=== PATIENT | male | born 1955 | race Caucasian/White ===

== ENCOUNTER 2018-01-08 04:07 | Inpatient (IN) | payer MEDICARE, OTHER ==
[2018-01-08] VITALS (21 sets, daily range): BP systolic 100–113; BP diastolic 8–78
[~2018-01-08] VITALS: Ht 170.2 cm; Wt 71.4 kg
[2018-01-08] MEDS ORDERED: famotidine/PF 10 mg/ml inj IV ONE (04:15)
[2018-01-08] MEDS ORDERED: methylPREDNISolone sod succ 125mg/2ml vial IV ONE (04:15)
[2018-01-08] MEDS ORDERED: normal saline 1000ML IV soln IVB STA (04:16)
[2018-01-08] MEDS: epiNEPHrine 1 mg/ml inj SQ ONE ×2 (04:20→04:48)
[2018-01-08] MEDS: diphenhydrAMINE 50 mg/ml inj IV ONE ×2 (04:20→04:48)
[2018-01-08] MEDS ORDERED: C1 ESTERASE INHIBITOR IV ONE (04:25)
[2018-01-08] MEDS ORDERED: tranexamic acid inj. 1,000 MG in normal saline 100ml IV soln 90 ML IV ONE (04:25)
[2018-01-08] MEDS ORDERED: tranexamic acid 100mg/ml inj. ONE (04:27)
[2018-01-08] MEDS ORDERED: racepinephrine 11.25mg/0.5ml nebule IH STA (04:59)
[2018-01-08] MEDS ORDERED: racepinephrine 11.25mg/0.5ml nebule ONE (05:00)
[2018-01-08] MEDS ORDERED: LIDOcaine 1% (10mg/ml) 2ml vial SQ ONE (05:10)
[2018-01-08] MEDS ORDERED: etomidate 2mg/ml inj. IV ONE (05:10)
[2018-01-08] MEDS ORDERED: succinylcholine 20mg/ml inj IV ONE (05:10)
[2018-01-08] MEDS ORDERED: MIDAZolam 1mg/ml 10ml vial ONE (05:23)
[2018-01-08] MEDS ORDERED: propofol inj 20 ML IV ONE (05:24)
[2018-01-08] MEDS ORDERED: fentaNYL/PF 50MCG/1 ML 2ML syringe ONE (05:24)
[2018-01-08] MEDS ORDERED: sevoflurane 250ml liquid IH ONE (05:24)
[2018-01-08] MEDS ORDERED: dextrose 5%-1/2 normal saline 1,000 ML IV SCH (06:05)
[2018-01-08] MEDS ORDERED: ipratropium/albuterol 3ml nebule NEB PRN (06:05)
[2018-01-08] MEDS: midazolam 100mg in NS 100ml 100 ML IV PRN ×2 (06:24→13:23)
[2018-01-08] MEDS: FENTANYL-0.9 % NACL/PF 100 ML IV PRN ×4 (06:32→19:51)
[2018-01-08] MEDS ORDERED: etomidate 2mg/ml inj. ONE (08:00)
[2018-01-08 08:52] LABS: ALBUMIN 2.8 G/DL (3.4-5.0); ANION GAP 10 (8-16); BLOOD UREA NITROGEN 16 MG/DL (7-18); BUN/CREATININE RATIO 19.8 (5.4-32.0); CALCIUM 7.7 MG/DL (8.5-10.1); CHLORIDE 104 MMOL/L (99-107); CREATININE 0.81 MG/DL (0.60-1.10); GLUCOSE 220 MG/DL (70-104); POTASSIUM 4.9 MMOL/L (3.5-5.1); SODIUM 137 MMOL/L (135-145); TOTAL CARBON DIOXIDE 22.6 MMOL/L (24-32); eGFR > 90 ML/MIN
[2018-01-08 09:20] LABS: HEMOGLOBIN 12.5 g/dl (14.0-17.9); MEAN CORPUSCULAR HEMOGLOBIN 32.4 PG (27.0-31.0); MEAN CORPUSCULAR HGB CONC 33.9 % (33.0-36.5); MEAN CORPUSCULAR VOLUME 95.7 FL (78-98); RED BLOOD COUNT 3.86 X10'6 (4.70-6.10); RED CELL DISTRIBUTION WIDTH 16.8 % (11.5-14.5)
[2018-01-08 09:23] LABS: MEAN PLATELET VOLUME 8.8 FL (7.4-10.4)
[2018-01-08 09:25] LABS: WHITE BLOOD COUNT 7.4 X10'3 (4.5-11.0)
[2018-01-08 09:28] LABS: PLATELET COUNT 58 X10'3 (140-440)
[2018-01-08] MEDS: methylPREDNISolone sod succ/PF 40mg inj. IV SCH ×3 (09:40→19:51)
[2018-01-08] MEDS: mineral oil/petrolatum ophthal oint EACHEYE SCH (09:41)
[2018-01-08 09:46] LABS: PLATELET ESTIMATE DECREASED; TOTAL CELLS COUNTED 100
[2018-01-08 09:47] LABS: ANISOCYTOSIS 1+
[2018-01-08] MEDS: diphenhydrAMINE 50 mg/ml inj IV SCH ×2 (12:25→15:14)
[2018-01-08] MEDS ORDERED: GABA-532 PO (13:18)
[2018-01-08] MEDS ORDERED: DULO60CA64 PO (13:19)
[2018-01-08] MEDS ORDERED: BENA40TA8 PO (13:19)
[2018-01-08 13:20] LABS: CLARITY,URINE CLOUDY (Clear); GLUCOSE, URINE NEGATIVE (Neg); KETONES,URINE 40 mg/dl (Neg); LEUKOCYTE ESTERASE ,URINE NEGATIVE (Neg); NITRITES, URINE NEGATIVE (Neg); OCCULT BLOOD,URINE TRACE-INTACT (Neg); PROTEIN,URINE NEGATIVE (Neg)
[2018-01-08 13:24] LABS: UA COLLECTION TYPE FOLEY CATH
[2018-01-08 13:25] LABS: COLOR,URINE PINK (Yellow)
[2018-01-08] MEDS ORDERED: HYDR50TA65 PO (13:29)
[2018-01-08] MEDS ORDERED: TRAZ-143 PO (13:29)
[2018-01-08 13:33] LABS: AMORPHOUS URATES 3+
[2018-01-08 13:34] LABS: BACTERIA,URINE NONE SEEN /HPF (Neg); WBC,URINE 0-4 /HPF (0-4)
[2018-01-08 13:35] LABS: SQUAMOUS EPITHELIAL CELL,UR FEW /LPF (FEW)
[2018-01-08] MEDS: famotidine/PF 10 mg/ml inj IV SCH (19:51)
[2018-01-08] MEDS ORDERED: dextrose ORAL solution 15 GM/59 ML bottle PO PRN ×2 (21:35)
[2018-01-08] MEDS ORDERED: dextrose 50%-water 50ml dispensing syringe IV PRN ×2 (21:35)
[2018-01-08] MEDS ORDERED: MESSAGE TO PHARMACY PO ONE (21:35)
[2018-01-08] MEDS ORDERED: glucagon, human recombinant 1mg kit SUBCUT PRN (21:35)
[2018-01-09] VITALS (24 sets, daily range): BP systolic 101–141; BP diastolic 67–85
[2018-01-09] MEDS: FENTANYL-0.9 % NACL/PF 100 ML IV PRN ×4 (00:08→19:20)
[2018-01-09] MEDS: diphenhydrAMINE 50 mg/ml inj IV SCH ×4 (00:09→23:40)
[2018-01-09] MEDS: midazolam 100mg in NS 100ml 100 ML IV PRN ×3 (00:09→19:20)
[2018-01-09] MEDS: methylPREDNISolone sod succ/PF 40mg inj. IV SCH ×5 (02:25→19:19)
[2018-01-09 04:10] LABS: ABG HCO3 28.9 mmol/L (22.0-26.0); ABG PCO2 (T) 61.1 mmHg (35.0-48.0); ABG PH (T) 7.292 (7.350-7.450); ABG PO2 (T) 90.6 mmHg (83-108); ALLEN'S TEST Positive; FCOHb 0.5 % (0.5-1.5); FMetHb 0.1 % (0.3-1.12); FO2Hb 95.4 % (94-100); MINUTE VOLUME 5 L/min; PEEP 5 cm H2O; RESPIRATORY RATE 12 b/min; RESPIRATORY RATE (OBSERVED) 12 b/min; TIDAL VOLUME 400 mL; TOTAL HEMOGLOBIN 12.7 G/dl (14.0-18.0)
[2018-01-09 05:15] LABS: HEMOGLOBIN A1C 6.2 % (4.5-6.2)
[2018-01-09 05:45] LABS: ALANINE AMINOTRANSFERASE 24 U/L (12-78); ALBUMIN 2.8 G/DL (3.4-5.0); ALBUMIN/GLOBULIN RATIO 0.8 (1.1-1.5); ALKALINE PHOSPHATASE 100 IU/L (46-116); ANION GAP 5 (8-16); ASPARTATE AMINO TRANSFERASE 20 U/L (10-37); BILIRUBIN,TOTAL 0.6 MG/DL (0.1-1.0); BLOOD UREA NITROGEN 21 MG/DL (7-18); BUN/CREATININE RATIO 26.3 (5.4-32.0); CALCIUM 8.2 MG/DL (8.5-10.1); CHLORIDE 107 MMOL/L (99-107); GLUCOSE 172 MG/DL (70-104); POTASSIUM 4.5 MMOL/L (3.5-5.1); SODIUM 141 MMOL/L (135-145); TOTAL CARBON DIOXIDE 29.2 MMOL/L (24-32); TOTAL PROTEIN 6.3 G/DL (6.4-8.2); eGFR > 90 ML/MIN
[2018-01-09 08:13] LABS: HEMATOCRIT 33.7 % (42.0-52.0); HEMOGLOBIN 11.5 g/dl (14.0-17.9); MEAN CORPUSCULAR HEMOGLOBIN 32.8 PG (27.0-31.0); MEAN CORPUSCULAR HGB CONC 34.2 % (33.0-36.5); MEAN CORPUSCULAR VOLUME 95.8 FL (78-98); MEAN PLATELET VOLUME 9.2 FL (7.4-10.4); RED BLOOD COUNT 3.52 X10'6 (4.70-6.10); RED CELL DISTRIBUTION WIDTH 16.7 % (11.5-14.5); WHITE BLOOD COUNT 6.9 X10'3 (4.5-11.0)
[2018-01-09] MEDS: famotidine/PF 10 mg/ml inj IV SCH ×2 (08:22→19:19)
[2018-01-09 08:25] LABS: PLATELET COUNT 44 X10'3 (140-440)
[2018-01-09 08:59] LABS: ANISOCYTOSIS 1+; PLATELET ESTIMATE DECREASED; TOTAL CELLS COUNTED 100
[2018-01-09 09:00] LABS: LARGE PLATELETS FEW; SPHEROCYTES FEW
[2018-01-09] MEDS: insulin Lispro (HumaLOG) vial - multi-dose SQ SCH ×2 (09:03→12:35)
[2018-01-09] MEDS: sodium chloride 0.45% 1,000 ML IV SCH (10:41)
[2018-01-09 10:59] LABS: PLATELET COUNT 64 X10'3 (140-440)
[2018-01-09 11:12] LABS: D-DIMER 2.64 MG/L FEU (0-0.50); PARTIAL THROMBOPLASTIN TIME 26 SECONDS (22-32)
[2018-01-09] MEDS ORDERED: traZODone 50mg tablet PO PRN (11:15)
[2018-01-09] MEDS ORDERED: hydrOXYzine 25 MG tablet PO PRN (11:15)
[2018-01-09] MEDS: mineral oil/petrolatum ophthal oint EACHEYE SCH ×2 (13:04→19:18)
[2018-01-09] MEDS: gabapentin 300mg capsule PO SCH ×2 (13:09→21:11)
[2018-01-09] MEDS: thiamine inj. 100 MG, MVI, adult No.4 with vit. K 10 ML in dextrose 5% water 500ml 489 ML IV SCH ×3 (13:10)
[2018-01-09] MEDS ORDERED: haloperidol 5mg tablet PO PRN (14:45)
[2018-01-09] MEDS ORDERED: LORazepam 2 mg/ml vial IV PRN (14:45)
[2018-01-09] MEDS: insulin glargine (Lantus) pen - multi-dose SQ SCH (21:00)
[2018-01-10] VITALS (24 sets, daily range): BP systolic 110–195; BP diastolic 72–100
[2018-01-10] MEDS: FENTANYL-0.9 % NACL/PF 100 ML IV PRN ×4 (01:15→23:01)
[2018-01-10] MEDS: midazolam 100mg in NS 100ml 100 ML IV PRN ×3 (01:15→10:27)
[2018-01-10] MEDS: mineral oil/petrolatum ophthal oint EACHEYE SCH ×4 (02:00→20:41)
[2018-01-10] MEDS: methylPREDNISolone sod succ/PF 40mg inj. IV SCH ×3 (02:15→20:40)
[2018-01-10] MEDS: insulin Lispro (HumaLOG) vial - multi-dose SQ SCH (02:21)
[2018-01-10 03:51] LABS: ABG BASE EXCESS 5.5 mmol/L (-2.0-3.0); ABG OXYGEN SATURATION 94.5 % (95-98); ABG PCO2 (T) 56.8 mmHg (35.0-48.0); ABG PH (T) 7.372 (7.350-7.450); ABG PO2 (T) 79.1 mmHg (83-108); ALLEN'S TEST Positive; FCOHb 0.4 % (0.5-1.5); FMetHb 0.1 % (0.3-1.12); MINUTE VOLUME 7 L/min; PATIENT TEMPERATURE 37.7; PEEP 5 cm H2O; RESPIRATORY RATE 16 b/min; RESPIRATORY RATE (OBSERVED) 16 b/min; TIDAL VOLUME 400 mL; TOTAL HEMOGLOBIN 12.7 G/dl (14.0-18.0)
[2018-01-10] MEDS: sodium chloride 0.45% 1,000 ML IV SCH (06:22)
[2018-01-10] MEDS: diphenhydrAMINE 50 mg/ml inj IV SCH ×3 (08:29→23:52)
[2018-01-10] MEDS: famotidine/PF 10 mg/ml inj IV SCH ×2 (08:30→20:40)
[2018-01-10] MEDS: gabapentin 300mg capsule PO SCH ×3 (08:30→20:41)
[2018-01-10] MEDS: duloxetine 30mg CAPSULE.DR PO SCH (08:31)
[2018-01-10] MEDS: thiamine inj. 100 MG, MVI, adult No.4 with vit. K 10 ML in dextrose 5% water 500ml 489 ML IV SCH ×3 (08:31)
[2018-01-10 08:41] LABS: HEMATOCRIT 34.6 % (42.0-52.0); HEMOGLOBIN 11.9 g/dl (14.0-17.9); MEAN CORPUSCULAR HEMOGLOBIN 32.7 PG (27.0-31.0); MEAN CORPUSCULAR HGB CONC 34.4 % (33.0-36.5); MEAN CORPUSCULAR VOLUME 95.1 FL (78-98); RED BLOOD COUNT 3.64 X10'6 (4.70-6.10); RED CELL DISTRIBUTION WIDTH 16.7 % (11.5-14.5); WHITE BLOOD COUNT 5.3 X10'3 (4.5-11.0)
[2018-01-10 08:44] LABS: MEAN PLATELET VOLUME 9.3 FL (7.4-10.4)
[2018-01-10 08:47] LABS: PLATELET COUNT 56 X10'3 (140-440)
[2018-01-10 08:53] LABS: ALANINE AMINOTRANSFERASE 20 U/L (12-78); ALBUMIN 2.7 G/DL (3.4-5.0); ALBUMIN/GLOBULIN RATIO 0.8 (1.1-1.5); ALKALINE PHOSPHATASE 90 IU/L (46-116); ANION GAP 4 (8-16); ASPARTATE AMINO TRANSFERASE 18 U/L (10-37); BILIRUBIN,TOTAL 0.7 MG/DL (0.1-1.0); BLOOD UREA NITROGEN 21 MG/DL (7-18); BUN/CREATININE RATIO 27.6 (5.4-32.0); CALCIUM 8.4 MG/DL (8.5-10.1); CHLORIDE 106 MMOL/L (99-107); CREATININE 0.76 MG/DL (0.60-1.10); GLUCOSE 176 MG/DL (70-104); MAGNESIUM 2.3 MG/DL (1.5-2.4); PHOSPHORUS 3.6 MG/DL (2.3-4.5); POTASSIUM 4.1 MMOL/L (3.5-5.1); SODIUM 142 MMOL/L (135-145); TOTAL CARBON DIOXIDE 32.2 MMOL/L (24-32); TOTAL PROTEIN 6.1 G/DL (6.4-8.2); eGFR > 90 ML/MIN
[2018-01-10 09:24] LABS: ANISOCYTOSIS 1+; PLATELET ESTIMATE DECREASED; SPHEROCYTES FEW; TOTAL CELLS COUNTED 100
[2018-01-10 09:25] LABS: LARGE PLATELETS FEW
[2018-01-10] MEDS ORDERED: iohexol 350MG/ML 100ml bottle IV ONE (10:58)
[2018-01-10] MEDS ORDERED: minoxidil 2.5mg tablet PO PRN (13:15)
[2018-01-10] MEDS: vancomycin/NS 1 GM ADD-VANTAGE 250 ML IV SCH ×2 (13:28→20:41)
[2018-01-10] MEDS: hydrALAZINE 20mg/ml inj. IV PRN ×2 (13:29→17:28)
[2018-01-10] MEDS: cefTAZidime inj. 1 GM in normal saline 100ml IV soln 100 ML IV SCH ×2 (14:00→15:54)
[2018-01-10] MEDS: insulin regular, human vial - multi-dose SQ SCH ×2 (14:24→21:38)
[2018-01-10] MEDS: clindamycin 600mg/D5W 50ml 50 ML IV SCH ×2 (16:57→23:53)
[2018-01-10] MEDS ORDERED: acetaminophen 325mg/10.15ml oral unit dose solution PO PRN (19:40)
[2018-01-10] MEDS ORDERED: vancomycin/NS 1 GM ADD-VANTAGE 250 ML IV SCH (20:00)
[2018-01-10] MEDS: insulin glargine (Lantus) pen - multi-dose SQ SCH (20:57)
[2018-01-11] VITALS (24 sets, daily range): BP systolic 110–147; BP diastolic 70–88
[2018-01-11] MEDS: cefTAZidime inj. 1 GM in normal saline 100ml IV soln 100 ML IV SCH ×2 (00:42→08:01)
[2018-01-11] MEDS: mineral oil/petrolatum ophthal oint EACHEYE SCH ×4 (01:58→20:51)
[2018-01-11] MEDS: methylPREDNISolone sod succ/PF 40mg inj. IV SCH ×4 (01:58→20:51)
[2018-01-11] MEDS: insulin regular, human vial - multi-dose SQ SCH ×4 (02:08→20:55)
[2018-01-11] MEDS: sodium chloride 0.45% 1,000 ML IV SCH ×2 (02:25→11:19)
[2018-01-11 04:06] LABS: ABG BASE EXCESS 1.9 mmol/L (-2.0-3.0); ABG OXYGEN SATURATION 91.1 % (95-98); ABG PCO2 (T) 34.7 mmHg (35.0-48.0); ABG PH (T) 7.477 (7.350-7.450); ABG PO2 (T) 61.7 mmHg (83-108); ALLEN'S TEST Positive; FCOHb 0.3 % (0.5-1.5); FMetHb 0.1 % (0.3-1.12); FO2Hb 90.7 % (94-100); MINUTE VOLUME 9 L/min; PATIENT TEMPERATURE 37.2; PEEP 5 cm H2O; RESPIRATORY RATE 16 b/min; RESPIRATORY RATE (OBSERVED) 16 b/min; TIDAL VOLUME 550 mL; TOTAL HEMOGLOBIN 13.1 G/dl (14.0-18.0)
[2018-01-11 05:12] LABS: PREALBUMIN 19.1 MG/DL (19-36)
[2018-01-11] MEDS: vancomycin/NS 1 GM ADD-VANTAGE 250 ML IV SCH ×2 (05:18→13:09)
[2018-01-11 05:34] LABS: ALANINE AMINOTRANSFERASE 23 U/L (12-78); ALBUMIN 2.4 G/DL (3.4-5.0); ALBUMIN/GLOBULIN RATIO 0.7 (1.1-1.5); ALKALINE PHOSPHATASE 82 IU/L (46-116); ANION GAP 5 (8-16); ASPARTATE AMINO TRANSFERASE 14 U/L (10-37); BILIRUBIN,TOTAL 0.6 MG/DL (0.1-1.0); BLOOD UREA NITROGEN 21 MG/DL (7-18); BUN/CREATININE RATIO 28.4 (5.4-32.0); CALCIUM 8.3 MG/DL (8.5-10.1); CHLORIDE 106 MMOL/L (99-107); CREATININE 0.74 MG/DL (0.60-1.10); GLUCOSE 164 MG/DL (70-104); MAGNESIUM 2.1 MG/DL (1.5-2.4); POTASSIUM 3.5 MMOL/L (3.5-5.1); SODIUM 140 MMOL/L (135-145); TOTAL CARBON DIOXIDE 28.7 MMOL/L (24-32); TOTAL PROTEIN 5.7 G/DL (6.4-8.2); eGFR > 90 ML/MIN
[2018-01-11] MEDS: FENTANYL-0.9 % NACL/PF 100 ML IV PRN ×3 (05:56→18:14)
[2018-01-11] MEDS: midazolam 100mg in NS 100ml 100 ML IV PRN ×3 (05:57→16:05)
[2018-01-11 06:08] LABS: HEMATOCRIT 34.1 % (42.0-52.0); HEMOGLOBIN 11.9 g/dl (14.0-17.9); MEAN CORPUSCULAR HGB CONC 34.8 % (33.0-36.5); MEAN CORPUSCULAR VOLUME 94.9 FL (78-98); MEAN PLATELET VOLUME 11.3 FL (7.4-10.4); RED BLOOD COUNT 3.59 X10'6 (4.70-6.10); RED CELL DISTRIBUTION WIDTH 16.7 % (11.5-14.5); WHITE BLOOD COUNT 4.5 X10'3 (4.5-11.0)
[2018-01-11 06:23] LABS: PLATELET COUNT 51 X10'3 (140-440)
[2018-01-11 07:34] LABS: TOTAL CELLS COUNTED 100
[2018-01-11 07:35] LABS: ANISOCYTOSIS 1+; LARGE PLATELETS FEW; PLATELET ESTIMATE DECREASED
[2018-01-11] MEDS: duloxetine 30mg CAPSULE.DR PO SCH (08:02)
[2018-01-11] MEDS: gabapentin 300mg capsule PO SCH ×3 (08:02→20:51)
[2018-01-11] MEDS: clindamycin 600mg/D5W 50ml 50 ML IV SCH ×3 (08:02→23:52)
[2018-01-11] MEDS: famotidine/PF 10 mg/ml inj IV SCH ×2 (08:02→20:51)
[2018-01-11] MEDS: diphenhydrAMINE 50 mg/ml inj IV SCH ×3 (08:02→23:52)
[2018-01-11] MEDS: thiamine inj. 100 MG, MVI, adult No.4 with vit. K 10 ML in dextrose 5% water 500ml 489 ML IV SCH ×3 (09:02)
[2018-01-11] MEDS: CefTRIAXone (Rocephin) 2gm/D5W 50ml IVPB IV SCH (11:27)
[2018-01-11] MEDS ORDERED: VANCOMYCIN LEVEL IV ONE (12:30)
[2018-01-11] MEDS ORDERED: LORazepam 1 MG tablet PO PRN (14:45)
[2018-01-11] MEDS ORDERED: LORazepam 2 mg/ml vial IV PRN (14:45)
[2018-01-11] MEDS: vancomycin inj 1,250 MG in normal saline 250ml IV soln 250 ML IV SCH (20:51)
[2018-01-11] MEDS: insulin glargine (Lantus) pen - multi-dose SQ SCH (20:56)
[2018-01-12] VITALS (23 sets, daily range): BP systolic 107–168; BP diastolic 68–101
[2018-01-12] MEDS: FENTANYL-0.9 % NACL/PF 100 ML IV PRN ×3 (00:50→15:45)
[2018-01-12] MEDS: methylPREDNISolone sod succ/PF 40mg inj. IV SCH ×4 (01:30→19:02)
[2018-01-12] MEDS: midazolam 100mg in NS 100ml 100 ML IV PRN ×3 (01:30→23:14)
[2018-01-12] MEDS: insulin regular, human vial - multi-dose SQ SCH ×4 (01:36→19:31)
[2018-01-12] MEDS: mineral oil/petrolatum ophthal oint EACHEYE SCH ×4 (01:36→19:02)
[2018-01-12 03:36] LABS: ABG BASE EXCESS 3.1 mmol/L (-2.0-3.0); ABG HCO3 27.4 mmol/L (22.0-26.0); ABG OXYGEN SATURATION 96.4 % (95-98); ABG PCO2 (T) 41.8 mmHg (35.0-48.0); ABG PH (T) 7.437 (7.350-7.450); ABG PO2 (T) 91.3 mmHg (83-108); ALLEN'S TEST Positive; FCOHb 0.3 % (0.5-1.5); FMetHb 0.1 % (0.3-1.12); MINUTE VOLUME 8 L/min; PATIENT TEMPERATURE 37.7; PEEP 5 cm H2O; RESPIRATORY RATE 14 b/min; RESPIRATORY RATE (OBSERVED) 14 b/min; TIDAL VOLUME 550 mL; TOTAL HEMOGLOBIN 12.6 G/dl (14.0-18.0)
[2018-01-12] MEDS: vancomycin inj 1,250 MG in normal saline 250ml IV soln 250 ML IV SCH ×3 (04:10→22:10)
[2018-01-12] MEDS: thiamine inj. 100 MG, MVI, adult No.4 with vit. K 10 ML in dextrose 5% water 500ml 489 ML IV SCH ×3 (07:54)
[2018-01-12] MEDS: duloxetine 30mg CAPSULE.DR PO SCH (07:55)
[2018-01-12] MEDS: gabapentin 300mg capsule PO SCH ×3 (07:55→20:00)
[2018-01-12] MEDS: clindamycin 600mg/D5W 50ml 50 ML IV SCH ×3 (07:55→23:14)
[2018-01-12] MEDS: famotidine/PF 10 mg/ml inj IV SCH ×2 (07:55→19:02)
[2018-01-12] MEDS: CefTRIAXone (Rocephin) 2gm/D5W 50ml IVPB IV SCH (07:55)
[2018-01-12] MEDS: diphenhydrAMINE 50 mg/ml inj IV SCH ×3 (07:55→23:14)
[2018-01-12 08:25] LABS: HEMOGLOBIN 12.1 g/dl (14.0-17.9); MEAN CORPUSCULAR HEMOGLOBIN 32.9 PG (27.0-31.0); MEAN CORPUSCULAR HGB CONC 34.5 % (33.0-36.5); MEAN CORPUSCULAR VOLUME 95.2 FL (78-98); PLATELET COUNT 75 X10'3 (140-440); RED BLOOD COUNT 3.68 X10'6 (4.70-6.10); RED CELL DISTRIBUTION WIDTH 16.6 % (11.5-14.5); WHITE BLOOD COUNT 6.2 X10'3 (4.5-11.0)
[2018-01-12 08:26] LABS: BASOPHILS % (AUTO) 0 % (0-1); EOSINOPHILS % (AUTO) 0 % (0-6); LYMPHOCYTES # (AUTO) 0.2 X10'3 (1.1-4.8); LYMPHOCYTES % (AUTO) 3.9 % (21-51); MEAN PLATELET VOLUME 13.4 FL (7.4-10.4); MONOCYTES # (AUTO) 0.3 X10'3 (0-0.9); MONOCYTES % (AUTO) 4.1 % (2-12); NEUTROPHILS # (AUTO) 5.9 X10'3 (1.8-7.7)
[2018-01-12 08:29] LABS: ALANINE AMINOTRANSFERASE 23 U/L (12-78); ALBUMIN 2.2 G/DL (3.4-5.0); ALBUMIN/GLOBULIN RATIO 0.7 (1.1-1.5); ALKALINE PHOSPHATASE 86 IU/L (46-116); ANION GAP 6 (8-16); ASPARTATE AMINO TRANSFERASE 14 U/L (10-37); BILIRUBIN,TOTAL 0.4 MG/DL (0.1-1.0); BLOOD UREA NITROGEN 22 MG/DL (7-18); BUN/CREATININE RATIO 32.8 (5.4-32.0); CALCIUM 8.1 MG/DL (8.5-10.1); CHLORIDE 105 MMOL/L (99-107); CREATININE 0.67 MG/DL (0.60-1.10); GLUCOSE 172 MG/DL (70-104); MAGNESIUM 2.1 MG/DL (1.5-2.4); POTASSIUM 3.9 MMOL/L (3.5-5.1); SODIUM 140 MMOL/L (135-145); TOTAL CARBON DIOXIDE 29.5 MMOL/L (24-32); TOTAL PROTEIN 5.5 G/DL (6.4-8.2); eGFR > 90 ML/MIN
[2018-01-12 09:38] LABS: LARGE PLATELETS FEW; PLATELET ESTIMATE DECREASED
[2018-01-12 15:56] LABS: ABG HCO3 27.3 mmol/L (22.0-26.0); ABG OXYGEN SATURATION 91.9 % (95-98); ABG PCO2 (T) 40.8 mmHg (35.0-48.0); ABG PH (T) 7.444 (7.350-7.450); ABG PO2 (T) 62.1 mmHg (83-108); ALLEN'S TEST Positive; FCOHb 0.3 % (0.5-1.5); FMetHb 0.1 % (0.3-1.12); FO2Hb 91.5 % (94-100); MINUTE VOLUME 8 L/min; PEEP 5 cm H2O; RESPIRATORY RATE 14 b/min; RESPIRATORY RATE (OBSERVED) 14 b/min; TOTAL HEMOGLOBIN 12.7 G/dl (14.0-18.0)
[2018-01-12] MEDS: sodium chloride 0.45% 1,000 ML IV SCH (18:25)
[2018-01-12] MEDS: lactobacillus rhamnosus 10,000 MMU CELLS/CAPSULE PO SCH (19:02)
[2018-01-12] MEDS: insulin glargine (Lantus) pen - multi-dose SQ SCH (20:03)
[2018-01-12] MEDS ORDERED: VANCOMYCIN LEVEL IV ONE (20:30)
[2018-01-13] VITALS (24 sets, daily range): BP systolic 123–206; BP diastolic 67–132
[2018-01-13] MEDS: FENTANYL-0.9 % NACL/PF 100 ML IV PRN (00:22)
[2018-01-13] MEDS: mineral oil/petrolatum ophthal oint EACHEYE SCH ×4 (01:53→19:35)
[2018-01-13] MEDS: methylPREDNISolone sod succ/PF 40mg inj. IV SCH ×4 (01:53→19:33)
[2018-01-13] MEDS: insulin regular, human vial - multi-dose SQ SCH ×2 (01:56→07:56)
[2018-01-13 03:31] LABS: ABG BASE EXCESS -0.6 mmol/L (-2.0-3.0); ABG HCO3 22.5 mmol/L (22.0-26.0); ABG OXYGEN SATURATION 96.2 % (95-98); ABG PCO2 (T) 32.5 mmHg (35.0-48.0); ABG PH (T) 7.458 (7.350-7.450); ABG PO2 (T) 85.2 mmHg (83-108); ALLEN'S TEST Positive; FCOHb 0.3 % (0.5-1.5); FMetHb 0.2 % (0.3-1.12); FO2Hb 95.7 % (94-100); MINUTE VOLUME 8 L/min; PEEP 5 cm H2O; RESPIRATORY RATE 14 b/min; RESPIRATORY RATE (OBSERVED) 14 b/min; TIDAL VOLUME 550 mL; TOTAL HEMOGLOBIN 13.7 G/dl (14.0-18.0)
[2018-01-13] MEDS: vancomycin inj 1,250 MG in normal saline 250ml IV soln 250 ML IV SCH ×3 (05:00→21:51)
[2018-01-13 06:47] LABS: ALANINE AMINOTRANSFERASE 23 U/L (12-78); ALBUMIN 2.3 G/DL (3.4-5.0); ALBUMIN/GLOBULIN RATIO 0.7 (1.1-1.5); ALKALINE PHOSPHATASE 79 IU/L (46-116); ANION GAP 5 (8-16); ASPARTATE AMINO TRANSFERASE 15 U/L (10-37); BILIRUBIN,TOTAL 0.4 MG/DL (0.1-1.0); BLOOD UREA NITROGEN 20 MG/DL (7-18); BUN/CREATININE RATIO 32.8 (5.4-32.0); CALCIUM 8.2 MG/DL (8.5-10.1); CHLORIDE 103 MMOL/L (99-107); CREATININE 0.61 MG/DL (0.60-1.10); GLUCOSE 110 MG/DL (70-104); POTASSIUM 3.5 MMOL/L (3.5-5.1); SODIUM 137 MMOL/L (135-145); TOTAL CARBON DIOXIDE 29.1 MMOL/L (24-32); TOTAL PROTEIN 5.6 G/DL (6.4-8.2); eGFR > 90 ML/MIN
[2018-01-13 07:13] LABS: BASOPHILS % (AUTO) 0 % (0-1); EOSINOPHILS % (AUTO) 0 % (0-6); HEMATOCRIT 36.4 % (42.0-52.0); HEMOGLOBIN 12.3 g/dl (14.0-17.9); LYMPHOCYTES % (AUTO) 6.8 % (21-51); MEAN CORPUSCULAR HEMOGLOBIN 32.6 PG (27.0-31.0); MEAN CORPUSCULAR HGB CONC 33.8 % (33.0-36.5); MEAN CORPUSCULAR VOLUME 96.2 FL (78-98); MONOCYTES % (AUTO) 7.1 % (2-12); NEUTROPHILS % (AUTO) 86.1 % (42-75); RED BLOOD COUNT 3.78 X10'6 (4.70-6.10); RED CELL DISTRIBUTION WIDTH 16.5 % (11.5-14.5)
[2018-01-13 07:26] LABS: LYMPHOCYTES # (AUTO) 0.5 X10'3 (1.1-4.8); MEAN PLATELET VOLUME 9.3 FL (7.4-10.4); MONOCYTES # (AUTO) 0.5 X10'3 (0-0.9); NEUTROPHILS # (AUTO) 5.9 X10'3 (1.8-7.7); PLATELET COUNT 92 X10'3 (140-440); WHITE BLOOD COUNT 6.9 X10'3 (4.5-11.0)
[2018-01-13] MEDS ORDERED: iohexol 300mg/ml 100ml inj. ONE (07:30)
[2018-01-13] MEDS: gabapentin 300mg capsule PO SCH ×4 (07:38→21:00)
[2018-01-13] MEDS: clindamycin 600mg/D5W 50ml 50 ML IV SCH ×2 (07:38→15:27)
[2018-01-13] MEDS: duloxetine 30mg CAPSULE.DR PO SCH (07:38)
[2018-01-13] MEDS: diphenhydrAMINE 50 mg/ml inj IV SCH ×2 (07:38→15:27)
[2018-01-13] MEDS: lactobacillus rhamnosus 10,000 MMU CELLS/CAPSULE PO SCH ×2 (07:38→19:35)
[2018-01-13] MEDS: thiamine inj. 100 MG, MVI, adult No.4 with vit. K 10 ML in dextrose 5% water 500ml 489 ML IV SCH ×3 (07:39)
[2018-01-13] MEDS: CefTRIAXone (Rocephin) 2gm/D5W 50ml IVPB IV SCH (07:39)
[2018-01-13] MEDS: famotidine/PF 10 mg/ml inj IV SCH ×2 (07:48→19:27)
[2018-01-13] MEDS: midazolam 100mg in NS 100ml 100 ML IV PRN (09:10)
[2018-01-13] MEDS ORDERED: dexmedetomidin/NS 400mcg/100ml 100 ML IV SCH (11:10)
[2018-01-13 11:36] LABS: ABG BASE EXCESS 1.6 mmol/L (-2.0-3.0); ABG PCO2 (T) 39.3 mmHg (35.0-48.0); ABG PH (T) 7.437 (7.350-7.450); ABG PO2 (T) 63.7 mmHg (83-108); ALLEN'S TEST Positive; FCOHb 0.2 % (0.5-1.5); FMetHb 0.3 % (0.3-1.12); FO2Hb 92.5 % (94-100); PATIENT TEMPERATURE 36.4; PEEP 5 cm H2O; RESPIRATORY RATE 12 b/min; TIDAL VOLUME 500 mL; TOTAL HEMOGLOBIN 14.2 G/dl (14.0-18.0)
[2018-01-13] MEDS ORDERED: furosemide 40mg/4ml inj IV ONE (13:00)
[2018-01-13] MEDS: haloperidol lactate 5mg/ml inj IM PRN ×3 (13:12→21:43)
[2018-01-13] MEDS ORDERED: metoprolol tartrate 1mg/ml inj IV STA (13:31)
[2018-01-13] MEDS ORDERED: cloNIDine 0.1 MG/24 HOUR patch (7 day patch) TD SCH (13:40)
[2018-01-13] MEDS ORDERED: LORazepam 2 mg/ml vial IV ONE (13:40)
[2018-01-13] MEDS: sodium chloride 0.45% 1,000 ML IV SCH (14:25)
[2018-01-13] MEDS ORDERED: LORazepam 1 MG tablet PO PRN (14:45)
[2018-01-13] MEDS: LORazepam 2 mg/ml vial IV PRN ×6 (14:50→23:05)
[2018-01-13] MEDS: hydrALAZINE 20mg/ml inj. IV PRN (16:22)
[2018-01-13] MEDS ORDERED: metoprolol tartrate 1mg/ml inj IV PRN (18:40)
[2018-01-13] MEDS: insulin glargine (Lantus) pen - multi-dose SQ SCH (21:00)
[2018-01-14] VITALS (20 sets, daily range): BP systolic 140–199; BP diastolic 76–128
[2018-01-14] MEDS: LORazepam 2 mg/ml vial IV PRN ×7 (01:20→20:56)
[2018-01-14] MEDS: clindamycin 600mg/D5W 50ml 50 ML IV SCH ×2 (01:29→08:49)
[2018-01-14] MEDS: methylPREDNISolone sod succ/PF 40mg inj. IV SCH ×2 (01:31→08:53)
[2018-01-14] MEDS: diphenhydrAMINE 50 mg/ml inj IV SCH ×2 (01:32→08:49)
[2018-01-14] MEDS: mineral oil/petrolatum ophthal oint EACHEYE SCH ×3 (01:34→14:00)
[2018-01-14] MEDS: hydrALAZINE 20mg/ml inj. IV PRN (01:38)
[2018-01-14] MEDS: vancomycin inj 1,250 MG in normal saline 250ml IV soln 250 ML IV SCH (05:48)
[2018-01-14 05:53] LABS: ALANINE AMINOTRANSFERASE 28 U/L (12-78); ALBUMIN 2.5 G/DL (3.4-5.0); ALBUMIN/GLOBULIN RATIO 0.8 (1.1-1.5); ALKALINE PHOSPHATASE 81 IU/L (46-116); ANION GAP 5 (8-16); ASPARTATE AMINO TRANSFERASE 25 U/L (10-37); BILIRUBIN,TOTAL 0.6 MG/DL (0.1-1.0); BLOOD UREA NITROGEN 15 MG/DL (7-18); BUN/CREATININE RATIO 23.4 (5.4-32.0); CALCIUM 7.9 MG/DL (8.5-10.1); CHLORIDE 99 MMOL/L (99-107); CREATININE 0.64 MG/DL (0.60-1.10); GLUCOSE 193 MG/DL (70-104); MAGNESIUM 1.8 MG/DL (1.5-2.4); PHOSPHORUS 3.3 MG/DL (2.3-4.5); POTASSIUM 3.3 MMOL/L (3.5-5.1); SODIUM 136 MMOL/L (135-145); TOTAL CARBON DIOXIDE 32.1 MMOL/L (24-32); TOTAL PROTEIN 5.8 G/DL (6.4-8.2); eGFR > 90 ML/MIN
[2018-01-14 06:00] LABS: BASOPHILS % (AUTO) 0.4 % (0-1); EOSINOPHILS % (AUTO) 0 % (0-6); HEMOGLOBIN 13.8 g/dl (14.0-17.9); LYMPHOCYTES # (AUTO) 0.3 X10'3 (1.1-4.8); LYMPHOCYTES % (AUTO) 2.7 % (21-51); MEAN CORPUSCULAR HEMOGLOBIN 32.7 PG (27.0-31.0); MEAN CORPUSCULAR HGB CONC 34.5 % (33.0-36.5); MEAN CORPUSCULAR VOLUME 94.9 FL (78-98); MEAN PLATELET VOLUME 13.4 FL (7.4-10.4); MONOCYTES # (AUTO) 0.6 X10'3 (0-0.9); NEUTROPHILS # (AUTO) 8.8 X10'3 (1.8-7.7); NEUTROPHILS % (AUTO) 90.9 % (42-75); RED BLOOD COUNT 4.21 X10'6 (4.70-6.10); RED CELL DISTRIBUTION WIDTH 16.4 % (11.5-14.5)
[2018-01-14 06:51] LABS: PLATELET COUNT 109 X10'3 (140-440); WHITE BLOOD COUNT 9.6 X10'3 (4.5-11.0)
[2018-01-14] MEDS: lactobacillus rhamnosus 10,000 MMU CELLS/CAPSULE PO SCH ×2 (08:00→20:56)
[2018-01-14] MEDS: duloxetine 30mg CAPSULE.DR PO SCH (08:00)
[2018-01-14] MEDS: gabapentin 300mg capsule PO SCH (08:00)
[2018-01-14] MEDS: famotidine/PF 10 mg/ml inj IV SCH ×2 (08:48→20:56)
[2018-01-14] MEDS: CefTRIAXone (Rocephin) 2gm/D5W 50ml IVPB IV SCH (08:54)
[2018-01-14] MEDS: thiamine inj. 100 MG, MVI, adult No.4 with vit. K 10 ML in dextrose 5% water 500ml 489 ML IV SCH ×3 (08:54)
[2018-01-14] MEDS: insulin Lispro (HumaLOG) vial - multi-dose SQ SCH ×3 (08:58→21:04)
[2018-01-14] MEDS: sodium chloride 0.45% 1,000 ML IV SCH (10:25)
[2018-01-14] MEDS: haloperidol lactate 5mg/ml inj IM PRN ×2 (10:34→23:12)
[2018-01-14] MEDS: labetalol 100mg tablet PO SCH ×3 (14:07→23:12)
[2018-01-14] MEDS ORDERED: potassium Cl 40MEQ/NS 500ml 500 ML IV PRN ×2 (17:55)
[2018-01-14] MEDS ORDERED: potassium Cl 20 mEq SR tablet PO PRN ×2 (17:55)
[2018-01-14] MEDS: insulin glargine (Lantus) pen - multi-dose SQ SCH (21:05)
[2018-01-15] VITALS (24 sets, daily range): BP systolic 115–195; BP diastolic 70–112
[2018-01-15] MEDS: insulin Lispro (HumaLOG) vial - multi-dose SQ SCH (02:38)
[2018-01-15] MEDS: sodium chloride 0.45% 1,000 ML IV SCH (02:40)
[2018-01-15] MEDS: LORazepam 2 mg/ml vial IV PRN ×2 (04:33→11:37)
[2018-01-15] MEDS: haloperidol lactate 5mg/ml inj IM PRN ×2 (04:48→13:27)
[2018-01-15 05:45] LABS: BASOPHILS # (AUTO) 0.1 X10'3 (0-0.2); BASOPHILS % (AUTO) 0.5 % (0-1); EOSINOPHILS % (AUTO) 0.2 % (0-6); HEMATOCRIT 41.1 % (42.0-52.0); HEMOGLOBIN 14.4 g/dl (14.0-17.9); LYMPHOCYTES # (AUTO) 1.4 X10'3 (1.1-4.8); LYMPHOCYTES % (AUTO) 14.1 % (21-51); MEAN CORPUSCULAR VOLUME 94.4 FL (78-98); MEAN PLATELET VOLUME 11.6 FL (7.4-10.4); MONOCYTES # (AUTO) 1.4 X10'3 (0-0.9); MONOCYTES % (AUTO) 13.7 % (2-12); NEUTROPHILS # (AUTO) 7.2 X10'3 (1.8-7.7); NEUTROPHILS % (AUTO) 71.5 % (42-75); PLATELET COUNT 115 X10'3 (140-440); RED BLOOD COUNT 4.35 X10'6 (4.70-6.10); RED CELL DISTRIBUTION WIDTH 16.6 % (11.5-14.5); WHITE BLOOD COUNT 10.1 X10'3 (4.5-11.0)
[2018-01-15 06:05] LABS: ALANINE AMINOTRANSFERASE 53 U/L (12-78); ALBUMIN 2.8 G/DL (3.4-5.0); ALBUMIN/GLOBULIN RATIO 0.8 (1.1-1.5); ALKALINE PHOSPHATASE 82 IU/L (46-116); ANION GAP 7 (8-16); ASPARTATE AMINO TRANSFERASE 50 U/L (10-37); BILIRUBIN,TOTAL 0.7 MG/DL (0.1-1.0); BLOOD UREA NITROGEN 13 MG/DL (7-18); BUN/CREATININE RATIO 18.8 (5.4-32.0); CALCIUM 8.1 MG/DL (8.5-10.1); CHLORIDE 100 MMOL/L (99-107); CREATININE 0.69 MG/DL (0.60-1.10); GLUCOSE 109 MG/DL (70-104); MAGNESIUM 1.9 MG/DL (1.5-2.4); PHOSPHORUS 2.6 MG/DL (2.3-4.5); POTASSIUM 3.1 MMOL/L (3.5-5.1); PREALBUMIN 24.8 MG/DL (19-36); SODIUM 137 MMOL/L (135-145); TOTAL CARBON DIOXIDE 29.9 MMOL/L (24-32); TOTAL PROTEIN 6.1 G/DL (6.4-8.2); eGFR > 90 ML/MIN
[2018-01-15] MEDS ORDERED: potassium Cl oral solution 20 MEQ/15 ML PO PRN (06:46)
[2018-01-15 06:49] LABS: PLATELET ESTIMATE DECREASED
[2018-01-15 06:50] LABS: LARGE PLATELETS FEW
[2018-01-15] MEDS: labetalol 100mg tablet PO SCH ×2 (07:23→15:49)
[2018-01-15] MEDS: famotidine/PF 10 mg/ml inj IV SCH ×2 (07:23→19:58)
[2018-01-15] MEDS: lactobacillus rhamnosus 10,000 MMU CELLS/CAPSULE PO SCH ×2 (07:24→19:55)
[2018-01-15] MEDS: potassium Cl oral solution 20 MEQ/15 ML PO PRN ×2 (07:25→15:41)
[2018-01-15] MEDS: thiamine inj. 100 MG, MVI, adult No.4 with vit. K 10 ML in dextrose 5% water 500ml 489 ML IV SCH ×3 (07:33)
[2018-01-15] MEDS: insulin regular, human vial - multi-dose SQ SCH ×3 (09:08→20:20)
[2018-01-15] MEDS: gabapentin 300mg capsule PO SCH ×2 (13:26→19:59)
[2018-01-15] MEDS: methylPREDNISolone sod succ 125mg/2ml vial IV SCH ×2 (13:27→19:58)
[2018-01-15] MEDS: heparin, porcine 5000 units/ml vial SQ SCH (20:00)
[2018-01-15] MEDS: insulin glargine (Lantus) pen - multi-dose SQ SCH (20:18)
[2018-01-16] VITALS (16 sets, daily range): BP systolic 75–127; BP diastolic 52–94
[2018-01-16] MEDS: labetalol 100mg tablet PO SCH ×2 (00:07→08:26)
[2018-01-16] MEDS: methylPREDNISolone sod succ 125mg/2ml vial IV SCH ×3 (02:11→14:11)
[2018-01-16] MEDS: insulin regular, human vial - multi-dose SQ SCH ×3 (02:17→14:14)
[2018-01-16 05:31] LABS: BASOPHILS % (AUTO) 0 % (0-1); EOSINOPHILS % (AUTO) 0 % (0-6); HEMATOCRIT 42.9 % (42.0-52.0); HEMOGLOBIN 14.8 g/dl (14.0-17.9); LYMPHOCYTES # (AUTO) 0.4 X10'3 (1.1-4.8); LYMPHOCYTES % (AUTO) 4.2 % (21-51); MEAN CORPUSCULAR HEMOGLOBIN 33.1 PG (27.0-31.0); MEAN CORPUSCULAR HGB CONC 34.5 % (33.0-36.5); MEAN CORPUSCULAR VOLUME 95.9 FL (78-98); MEAN PLATELET VOLUME 10.9 FL (7.4-10.4); MONOCYTES # (AUTO) 0.4 X10'3 (0-0.9); MONOCYTES % (AUTO) 5.2 % (2-12); NEUTROPHILS # (AUTO) 7.9 X10'3 (1.8-7.7); NEUTROPHILS % (AUTO) 90.6 % (42-75); RED BLOOD COUNT 4.47 X10'6 (4.70-6.10); WHITE BLOOD COUNT 8.7 X10'3 (4.5-11.0)
[2018-01-16 05:34] LABS: ALANINE AMINOTRANSFERASE 48 U/L (12-78); ALBUMIN 2.6 G/DL (3.4-5.0); ALBUMIN/GLOBULIN RATIO 0.7 (1.1-1.5); ALKALINE PHOSPHATASE 92 IU/L (46-116); ANION GAP 8 (8-16); ASPARTATE AMINO TRANSFERASE 25 U/L (10-37); BILIRUBIN,TOTAL 0.6 MG/DL (0.1-1.0); BLOOD UREA NITROGEN 21 MG/DL (7-18); BUN/CREATININE RATIO 31.3 (5.4-32.0); CALCIUM 8.7 MG/DL (8.5-10.1); CHLORIDE 102 MMOL/L (99-107); CREATININE 0.67 MG/DL (0.60-1.10); GLUCOSE 168 MG/DL (70-104); PHOSPHORUS 4.3 MG/DL (2.3-4.5); POTASSIUM 3.8 MMOL/L (3.5-5.1); SODIUM 137 MMOL/L (135-145); TOTAL CARBON DIOXIDE 27.4 MMOL/L (24-32); TOTAL PROTEIN 6.1 G/DL (6.4-8.2); eGFR > 90 ML/MIN
[2018-01-16 07:26] LABS: PLATELET COUNT 195 X10'3 (140-440)
[2018-01-16 07:27] LABS: ANISOCYTOSIS 1+; GIANT PLATELET FEW; LARGE PLATELETS FEW; PLATELET ESTIMATE NORMAL
[2018-01-16] MEDS: gabapentin 300mg capsule PO SCH ×3 (08:25→21:09)
[2018-01-16] MEDS: thiamine inj. 100 MG, MVI, adult No.4 with vit. K 10 ML in dextrose 5% water 500ml 489 ML IV SCH ×3 (08:25)
[2018-01-16] MEDS: lactobacillus rhamnosus 10,000 MMU CELLS/CAPSULE PO SCH ×2 (08:27→19:09)
[2018-01-16] MEDS: heparin, porcine 5000 units/ml vial SQ SCH ×2 (08:27→19:09)
[2018-01-16] MEDS: famotidine/PF 10 mg/ml inj IV SCH ×2 (08:55→19:08)
[2018-01-16] MEDS: LORazepam 2 mg/ml vial IV PRN ×3 (12:52→21:09)
[2018-01-16] MEDS: insulin Lispro (HumaLOG) vial - multi-dose SQ SCH (19:25)
[2018-01-16] MEDS: methylPREDNISolone sod succ/PF 40mg inj. IV SCH (19:29)
[2018-01-16] MEDS: insulin glargine (Lantus) pen - multi-dose SQ SCH (21:44)
[2018-01-17] MEDS: methylPREDNISolone sod succ/PF 40mg inj. IV SCH ×2 (02:16→08:48)
[2018-01-17 03:00] VITALS: BP 120/87
[2018-01-17] MEDS: LORazepam 2 mg/ml vial IV PRN (05:25)
[2018-01-17 05:41] LABS: ALANINE AMINOTRANSFERASE 42 U/L (12-78); ALBUMIN 2.6 G/DL (3.4-5.0); ALBUMIN/GLOBULIN RATIO 0.8 (1.1-1.5); ALKALINE PHOSPHATASE 77 IU/L (46-116); ANION GAP 7 (8-16); ASPARTATE AMINO TRANSFERASE 19 U/L (10-37); BILIRUBIN,TOTAL 0.5 MG/DL (0.1-1.0); BLOOD UREA NITROGEN 24 MG/DL (7-18); BUN/CREATININE RATIO 33.8 (5.4-32.0); CALCIUM 8.8 MG/DL (8.5-10.1); CHLORIDE 102 MMOL/L (99-107); CREATININE 0.71 MG/DL (0.60-1.10); GLUCOSE 142 MG/DL (70-104); MAGNESIUM 2.3 MG/DL (1.5-2.4); PHOSPHORUS 4.7 MG/DL (2.3-4.5); POTASSIUM 4.3 MMOL/L (3.5-5.1); SODIUM 138 MMOL/L (135-145); TOTAL CARBON DIOXIDE 29.3 MMOL/L (24-32); eGFR > 90 ML/MIN
[2018-01-17 06:00] VITALS: BP 110/82
[2018-01-17 06:06] LABS: BASOPHILS % (AUTO) 0 % (0-1); EOSINOPHILS % (AUTO) 0 % (0-6); HEMATOCRIT 42.6 % (42.0-52.0); HEMOGLOBIN 14.7 g/dl (14.0-17.9); LYMPHOCYTES # (AUTO) 0.4 X10'3 (1.1-4.8); LYMPHOCYTES % (AUTO) 3.3 % (21-51); MEAN CORPUSCULAR HGB CONC 34.5 % (33.0-36.5); MEAN CORPUSCULAR VOLUME 95.6 FL (78-98); MONOCYTES # (AUTO) 0.3 X10'3 (0-0.9); NEUTROPHILS % (AUTO) 94.7 % (42-75); PLATELET COUNT 242 X10'3 (140-440); RED BLOOD COUNT 4.46 X10'6 (4.70-6.10); WHITE BLOOD COUNT 12.6 X10'3 (4.5-11.0)
[2018-01-17] MEDS: gabapentin 300mg capsule PO SCH ×3 (08:48→20:15)
[2018-01-17] MEDS: multivitamin oral liquid (Certavite) 5ml cup PO SCH (08:48)
[2018-01-17] MEDS: famotidine/PF 10 mg/ml inj IV SCH ×2 (08:48→20:15)
[2018-01-17] MEDS: thiamine 100mg tablet PO SCH (08:48)
[2018-01-17] MEDS: labetalol 100mg tablet PO SCH ×2 (08:48→20:15)
[2018-01-17] MEDS: lactobacillus rhamnosus 10,000 MMU CELLS/CAPSULE PO SCH ×2 (08:49→20:15)
[2018-01-17] MEDS: heparin, porcine 5000 units/ml vial SQ SCH ×2 (08:49→20:16)
[2018-01-17] MEDS: folic acid 1mg tablet PO SCH (08:49)
[2018-01-17 11:00] VITALS: BP 110/80
[2018-01-17] MEDS: insulin Lispro (HumaLOG) vial - multi-dose SQ SCH ×2 (12:43→21:39)
[2018-01-17 15:00] VITALS: BP 112/79
[2018-01-17 19:00] VITALS: BP 110/70
[2018-01-17] MEDS: insulin glargine (Lantus) pen - multi-dose SQ SCH (21:33)
[2018-01-17 23:00] VITALS: BP 113/77
[2018-01-18 03:00] VITALS: BP 119/81
[2018-01-18 05:57] LABS: ALANINE AMINOTRANSFERASE 60 U/L (12-78); ALBUMIN 2.8 G/DL (3.4-5.0); ALBUMIN/GLOBULIN RATIO 0.8 (1.1-1.5); ALKALINE PHOSPHATASE 77 IU/L (46-116); ANION GAP 4 (8-16); ASPARTATE AMINO TRANSFERASE 26 U/L (10-37); BILIRUBIN,TOTAL 0.6 MG/DL (0.1-1.0); BLOOD UREA NITROGEN 32 MG/DL (7-18); CALCIUM 8.6 MG/DL (8.5-10.1); CHLORIDE 102 MMOL/L (99-107); CREATININE 0.82 MG/DL (0.60-1.10); GLUCOSE 84 MG/DL (70-104); MAGNESIUM 2.1 MG/DL (1.5-2.4); PHOSPHORUS 3.6 MG/DL (2.3-4.5); POTASSIUM 4.1 MMOL/L (3.5-5.1); PREALBUMIN 26.8 MG/DL (19-36); SODIUM 137 MMOL/L (135-145); TOTAL CARBON DIOXIDE 30.6 MMOL/L (24-32); TOTAL PROTEIN 6.1 G/DL (6.4-8.2); eGFR > 90 ML/MIN
[2018-01-18 06:01] LABS: BASOPHILS % (AUTO) 0.2 % (0-1); EOSINOPHILS # (AUTO) 0.2 X10'3 (0-0.9); EOSINOPHILS % (AUTO) 1.4 % (0-6); HEMATOCRIT 40.5 % (42.0-52.0); LYMPHOCYTES # (AUTO) 2.4 X10'3 (1.1-4.8); LYMPHOCYTES % (AUTO) 19.9 % (21-51); MEAN CORPUSCULAR HEMOGLOBIN 33.2 PG (27.0-31.0); MEAN CORPUSCULAR HGB CONC 34.7 % (33.0-36.5); MEAN CORPUSCULAR VOLUME 95.8 FL (78-98); MEAN PLATELET VOLUME 9.7 FL (7.4-10.4); MONOCYTES # (AUTO) 0.9 X10'3 (0-0.9); MONOCYTES % (AUTO) 7.4 % (2-12); NEUTROPHILS # (AUTO) 8.5 X10'3 (1.8-7.7); NEUTROPHILS % (AUTO) 71.1 % (42-75); PLATELET COUNT 260 X10'3 (140-440); RED BLOOD COUNT 4.22 X10'6 (4.70-6.10); RED CELL DISTRIBUTION WIDTH 16.9 % (11.5-14.5)
[2018-01-18 07:00] VITALS: BP 122/77
[2018-01-18] MEDS ORDERED: methylPREDNISolone sod succ/PF 40mg inj. IV SCH (08:00)
[2018-01-18] MEDS: famotidine/PF 10 mg/ml inj IV SCH (08:46)
[2018-01-18] MEDS: insulin Lispro (HumaLOG) vial - multi-dose SQ SCH (08:46)
[2018-01-18] MEDS: heparin, porcine 5000 units/ml vial SQ SCH ×2 (08:48→20:46)
[2018-01-18] MEDS: folic acid 1mg tablet PO SCH (08:49)
[2018-01-18] MEDS: gabapentin 300mg capsule PO SCH ×3 (08:49→20:45)
[2018-01-18] MEDS: labetalol 100mg tablet PO SCH ×2 (08:49→20:45)
[2018-01-18] MEDS: multivitamin oral liquid (Certavite) 5ml cup PO SCH (08:49)
[2018-01-18] MEDS: lactobacillus rhamnosus 10,000 MMU CELLS/CAPSULE PO SCH ×2 (08:49→20:45)
[2018-01-18] MEDS: thiamine 100mg tablet PO SCH (08:49)
[2018-01-18] MEDS ORDERED: dextrose 50%-water 50ml dispensing syringe IV ONE (09:00)
[2018-01-18 11:00] VITALS: BP 125/83
[2018-01-18 15:00] VITALS: BP 115/75
[2018-01-18 18:00] VITALS: BP 135/92
[2018-01-18] MEDS: famotidine 20mg tablet PO SCH (20:45)
[2018-01-18] MEDS: insulin glargine (Lantus) pen - multi-dose SQ SCH (21:00)
[2018-01-18 22:00] VITALS: BP 107/71
[2018-01-19 02:00] VITALS: BP 102/73
[2018-01-19 05:31] LABS: BASOPHILS % (AUTO) 0.2 % (0-1); EOSINOPHILS # (AUTO) 0.1 X10'3 (0-0.9); EOSINOPHILS % (AUTO) 1.1 % (0-6); HEMOGLOBIN 13.7 g/dl (14.0-17.9); LYMPHOCYTES % (AUTO) 21.1 % (21-51); MEAN CORPUSCULAR HEMOGLOBIN 32.9 PG (27.0-31.0); MEAN CORPUSCULAR HGB CONC 34.3 % (33.0-36.5); MEAN PLATELET VOLUME 9.9 FL (7.4-10.4); MONOCYTES # (AUTO) 0.6 X10'3 (0-0.9); MONOCYTES % (AUTO) 6.6 % (2-12); NEUTROPHILS # (AUTO) 6.8 X10'3 (1.8-7.7); PLATELET COUNT 249 X10'3 (140-440); RED BLOOD COUNT 4.17 X10'6 (4.70-6.10); RED CELL DISTRIBUTION WIDTH 16.9 % (11.5-14.5); WHITE BLOOD COUNT 9.5 X10'3 (4.5-11.0)
[2018-01-19 05:40] LABS: ALKALINE PHOSPHATASE 72 IU/L (46-116); BILIRUBIN,TOTAL 0.5 MG/DL (0.1-1.0); CHLORIDE 102 MMOL/L (99-107); POTASSIUM 3.9 MMOL/L (3.5-5.1); SODIUM 135 MMOL/L (135-145)
[2018-01-19 05:59] LABS: ALANINE AMINOTRANSFERASE 63 U/L (12-78); ALBUMIN 2.5 G/DL (3.4-5.0); ALBUMIN/GLOBULIN RATIO 0.7 (1.1-1.5); ANION GAP 9 (8-16); ASPARTATE AMINO TRANSFERASE 34 U/L (10-37); BLOOD UREA NITROGEN 26 MG/DL (7-18); BUN/CREATININE RATIO 32.1 (5.4-32.0); CALCIUM 8.3 MG/DL (8.5-10.1); CREATININE 0.81 MG/DL (0.60-1.10); GLUCOSE 116 MG/DL (70-104); MAGNESIUM 1.9 MG/DL (1.5-2.4); PHOSPHORUS 3.3 MG/DL (2.3-4.5); TOTAL CARBON DIOXIDE 23.7 MMOL/L (24-32); eGFR > 90 ML/MIN
[2018-01-19 07:00] VITALS: BP 114/86
[2018-01-19] MEDS: multivitamin oral liquid (Certavite) 5ml cup PO SCH (08:16)
[2018-01-19] MEDS: gabapentin 300mg capsule PO SCH ×2 (08:19→13:37)
[2018-01-19] MEDS: heparin, porcine 5000 units/ml vial SQ SCH (08:19)
[2018-01-19] MEDS: thiamine 100mg tablet PO SCH (08:19)
[2018-01-19] MEDS: labetalol 100mg tablet PO SCH (08:19)
[2018-01-19] MEDS: famotidine 20mg tablet PO SCH (08:19)
[2018-01-19] MEDS: lactobacillus rhamnosus 10,000 MMU CELLS/CAPSULE PO SCH (08:19)
[2018-01-19] MEDS: folic acid 1mg tablet PO SCH (08:20)
[2018-01-19 11:00] VITALS: BP 108/72
[2018-01-19 15:00] VITALS: BP 111/72
== END 2018-01-19 17:55 | DRG 207 ==
LOC: ER 04:07 → PACU 05:18 → ICU 2S 06:13 → PCU 3S 01-16 11:15
PROVIDERS: ADMIT Internal Medicine Critical Care Medicine; ATTEND Internal Medicine Critical Care Medicine
PROC: 0BH17EZ Insertion of Endotracheal Airway into Trachea, Via Natural or Artificial Opening (ICD-10-PCS; 2018-01-08)
PROC: 30233L1 Transfusion of Nonautologous Fresh Plasma into Peripheral Vein, Percutaneous Approach (ICD-10-PCS; 2018-01-08)
PROC: 30233K1 Transfusion of Nonautologous Frozen Plasma into Peripheral Vein, Percutaneous Approach (ICD-10-PCS; 2018-01-08)
PROC: 5A1955Z Respiratory Ventilation, Greater than 96 Consecutive Hours (ICD-10-PCS; principal; 2018-01-08 05:24)
PROC: B3201ZZ Computerized Tomography (CT Scan) of Thoracic Aorta using Low Osmolar Contrast (ICD-10-PCS; 2018-01-10)
PROC: BW2F1ZZ Computerized Tomography (CT Scan) of Neck using Low Osmolar Contrast (ICD-10-PCS; 2018-01-13)
DX: J96.00 Acute respiratory failure, unspecified whether with hypoxia or hypercapnia (principal); J69.0 Pneumonitis due to inhalation of food and vomit; F10.239 Alcohol dependence with withdrawal, unspecified; T78.3XXA Angioneurotic edema, initial encounter; D69.6 Thrombocytopenia, unspecified; G31.2 Degeneration of nervous system due to alcohol; I10 Essential (primary) hypertension; T46.4X5A Adverse effect of angiotensin-converting-enzyme inhibitors, initial encounter; Z88.8 Allergy status to other drugs, medicaments and biological substances; Y92.89 Other specified places as the place of occurrence of the external cause
CPT/HCPCS: 36415; 36600; 70360; 70450; 70490; 70491; 71045; 71275; 74018; 80048; 80053; 80202; 81001; 82803; 82948; 83036; 83735; 84100; 84134; 84145; 85018; 85025; 85379; 85384; 85610; 85730; 86885; 86900; 86901; 87070; 92616; 93005; 94002; 94003; 94640; 94760; 96361; 96372; 96374; 96375; 97116; 97162; 97530; 99291; 99292; A6253; A6258; A6449; A7521; J0171; J0360; J0696; J0713; J1200; J1630; J1644; J1815; J1940; J2060; J2250; J2704; J2920; J2930; J3010; J3370; J3411; J3480; J3490; J7030; J7060; J7120; P9059; Q0177; Q9967